=== PATIENT | female | born 1965 | race African-American/Black ===

== ENCOUNTER 2020-11-11 07:58 | Emergency (ER) | payer OTHER, SELFPAY ==
[2020-11-11] VITALS (11 sets, daily range): BP systolic 102–142; BP diastolic 77–91; PULSE 65–81; RESP 11–20; TEMP 37.1; O2SAT 99–100
--- NOTE | ~2020-11-11 | CT_ITS ---
EXAMINATION: CT brain wo con DATE: 11/11/2020 08:31 INDICATION: Seizure. Altered mental status. TECHNIQUE: Computed tomography (CT) of the head was performed without intravenous contrast. The mA wa s adjusted according to patient size. Iterative reconstruction technique was employed. The dose-lengt h product was 605.33 mGy-cm. COMPARISON: None FINDINGS: There is chronic encephalomalacia in anterior right temporal lobe. There is no intracranial hemorrhage, acute infarction, or abnormal intracranial mass lesion. The ventricles are normal in siz e. There is mild mucosal thickening in the ethmoid sinuses. There are changes of right-sided cranioto my. The mastoid air cells are normal. The orbits are normal. IMPRESSION: 1. Chronic encephalomalacia in anterior right temporal lobe. Reviewed, dictated and finalized at location A. S EFFECTIVENESS MANAGER
--- NOTE | 2020-11-11 08:03 | ECG_ITS ---
Measurements Intervals [place] Rate: 74 P: 6 CT: 143 QRS: 40 QRSD: 86 T: 46 QT: 382 QTc: 425 Interpretive Statements SINUS RHYTHM ST ELEVATION IN DIFFUSE LEADS- PROBABLY EARLY REPOLARIZATION BASELINE ARTIFACT- II, III ,AVF BORDERLINE ECG Electronically Signed On 11-11-2020 11:04:51 [employer] SAL[employer] EXECUTIVE by Marshall Rico D.O.
--- NOTE | 2020-11-11 08:09 | ED.SEIZURE ---
HPI - Seizure General Chief Complaint: Seizure Stated Complaint: [id number] Time Seen by Provider: 11/11/20 08:00 Source: patient and EMS Mode of arrival: EMS Limitations: no limitations History of Present Illness HPI Narrative: A 55-year-old female presents to the emergency department with complaints of a possible seizure per EMS. EMS reports that they were called after the patient had 10 minutes of a whole body seizure . This was reported by the people that were with her. They stated that they were her family. EMS note that her family did not even know the patient's last name. Patient still confused and unable to provide meaningful history. Related Data Home Medications Medication Instructions Recorded Confirmed cyclobenzaprine mg 11/11/20 levetiracetam 11/11/20 polyethylene glycol 3350 11/11/20 Allergies Allergy/AdvReac Type Severity Reaction Status Date / Time No Known Drug Allergies Allergy Unknown Unknown Verified 11/11/20 09:48 Review of Systems Review of Systems: ROS unobtainable: Yes unobtainable due to medical condition Exam Narrative: Exam Narrative: GENERAL: Well-appearing, well-nourished, and in no acute distress. HEAD: Normocephalic, atraumatic. EYES: PERRLA and EOMI. ENT: Nares clear, no rhinorrhea or epistaxis. Mucous membranes moist. Oropharynx without tonsillar hypertrophy exudate or other lesions. Bilateral TMs p[place] bloom nonbulging NECK: Supple. No adenopathy or masses. No carotid bruits or JVD CHEST: Clear to auscultation. No respiratory distress. No wheezes rales or rhonchi HEART: Regular rate and rhythm. No murmur heard. Normal peripheral pulses. ABDOMEN: Soft, nontender, nondistended, normal active bowel sounds. EXTREMITIES: Normal range of motion. No edema. SKIN: Warm, dry, no rash. NEURO: No focal deficits. Alert and oriented x1-2. PSYCH: Normal mood and affect. Course Reevaluation(s) Reevaluation #1: Patient resting comfortably at this time. She is more awake and alert. Patient states that she is compliant with her medications however she cannot recall the exact name. Patient is feeling much better. She has no complaints at this time. Time: 09:56 Vital Signs Vital signs: Vital Signs Temperature 37.1 C 11/11/20 07:56 Pulse Rate 71 01/26/21 07:56 Respiratory Rate 20 11/11/20 07:56 Blood Pressure 133/89 11/11/20 07:56 Pulse Oximetry 100 11/11/20 07:56 Temperature 37.1 C 11/11/20 07:56 Pulse Rate 65 11/11/20 09:02 Respiratory Rate 11 L 11/11/20 09:02 Blood Pressure 142/91 H 11/11/20 09:01 Pulse Oximetry 100 11/11/20 09:02 MDM - Seizure MDM Narrative Medical decision making narrative: In brief this is a 55-year-old female was brought into the emergency department for seizure-like activity. Patient was worked up and evaluated. On arrival she was somewhat postictal and somewhat confused. After the patient was observed in the emergency department she did return to baseline, was mentating well and answering questions appropriately. Patient was uncertain of what her antiepileptic was and therefore we were unable to check levels. The remainder of the patient's laboratory data are consistent with a seizure. Her elevated lactic acid I feel is likely due to convulsions and not any type of septic process. Patient was given IV fluids to address this. She will be discharged home. Patient's drug screen was positive for cannabis that this may have been playing a role as well. Medical Records Attestation: I reviewed the patient's medical records. Lab Data Attestation: I reviewed the patient's lab results. Result diagrams: 11/11/20 08:23 11/11/20 08:23 Labs: Lab Results 11/11/20 11/11/20 11/11/20 Range/Units 08:23 08:23 08:23 WBC 5.3 (4.5-10.0) K/mm3 RBC 5.01 (4.2-5.4) M/mm3 Hgb 14.7 (12.0-15.0) g/dL Hct 44.3 (37.0-47.0) % MCV 88.4 (80-100) fl MCH 29.3 (26-3
[2020-11-11 08:38] LABS: Basophils Absolute Auto 0.1 K/mm3 (0.0-0.1); Basophils Percent Auto 0.9 % (0.2-1.2); Eosinophils Absolute Auto 0.1 K/mm3 (0-0.3); Eosinophils Percent Auto 1.5 % (0-4.4); Hematocrit 44.3 % (37.0-47.0); Hemoglobin 14.7 g/dL (12.0-15.0); Immature Granulocyte Absolute 0.01 K/mm3 (0.00-0.031); Immature Granulocyte Percent A 0.2 % (0-0.5); Lymphocytes Absolute Auto 3.09 K/mm3 (0.9-3.2); Lymphocytes Percent Auto 57.9 % (18.3-44.2); Mean Corpuscular HGB Conc 33.2 g/dl (32-36); Mean Corpuscular Hemoglobin 29.3 pg (26-34); Mean Corpuscular Volume 88.4 fl (80-100); Mean Platelet Volume 9.9 fl (7.4-10.4); Monocytes Absolute Auto 0.4 K/mm3 (0.1-0.6); Monocytes Percent Auto 7.7 % (2.6-8.5); Neutrophils Absolute Auto 1.7 K/mm3 (1.3-6.7); Neutrophils Percent Auto 31.8 % (45.5-73.1); Platelet Count Result 290 k/mm3 (150-375); Red Blood Count 5.01 M/mm3 (4.2-5.4); Red Cell Distribution Width 13.8 % (11.5-14.5); White Blood Count 5.3 K/mm3 (4.5-10.0)
[2020-11-11 08:51] LABS: Lactic Acid Reflex 4.1 mmol/L (0.7-2.1)
[2020-11-11 08:55] LABS: Albumin Level 4.3 g/dL (3.5-5.1); Carbon Dioxide 28 mmol/L (22-30); Estimated CRCL calculation 68 ml/min; Estimated Glomerular Filt Rate > 60
[2020-11-11 09:01] LABS: Troponin I < 0.012 ng/mL (0.000-0.034)
[2020-11-11 09:10] LABS: Alkaline Phosphatase 62 U/L (38-126); Anion Gap 8 mmol/L (8-16); Aspartate Amino Transferase 33 U/L (14-36); Bilirubin,Total 0.7 mg/dL (0.2-1.3); Blood Urea Nitrogen 11 mg/dL (7-17); Calcium 9.3 mg/dL (8.4-10.2); Chloride 101 mmol/L (98-107); Glucose 92 mg/dL (65-105); Potassium 3.8 mmol/L (3.4-5.0); Sodium 137 mmol/L (137-145)
[2020-11-11 09:19] LABS: Alanine Aminotransferase 28 U/L (4-35)
[2020-11-11 09:26] LABS: Add Urine Microscopic? YES; Appearance Urine Clear (Clear); Bacteria Urine 4+ /hpf; Bilirubin Urine Negative (Negative); Blood Urine 2+ (Negative); Color Urine Yellow (Yellow); Glucose Urine UA Negative (Negative); Ketones Urine Negative (Negative); Leukocyte Esterase Ur Negative LEU/UL (Negative); Mucus Urine Few /lpf; Nitrate Urine Positive (Negative); Protein Urine 2+ mg/dL (Negative); RBC Urine 0-2 /hpf (0-2); Specific Grav Ur 1.026 (1.001-1.035); Squamous Epithelial Cell Urine Many /hpf (Few); Urobilinogen Urine Negative mg/dL (<2.0); WBC Urine 0-3 /hpf
[2020-11-11 09:30] LABS: Creatine Kinase 60 U/L (30-135)
[2020-11-11 09:32] LABS: Amphetamine Screen Urine Negative (Negative); Barbiturate Screen Urine Negative (Negative); Benzodiazepines Screen Urine Negative (Negative); Cannabinoid Screen Urine Positive (Negative); Cocaine Screen Urine Negative (Negative); Methadone Screen Urine Negative (Negative); Opiate Screen Urine Negative (Negative); Phencyclidine Screen Urine Negative (Negative)
[2020-11-11] MEDS: LACTATED RINGERS 1,000 ML 999 ML IV CONT (09:47)
[2020-11-11 11:34] LABS: Reflex Lactic Acid Yes or No Add Lactic
== END 2020-11-11 10:27 | disposition home or self-care (01) ==
PROVIDERS: Emergency Provider Emergency Medicine
DX: R56.9 Unspecified convulsions (principal); R94.31 Abnormal electrocardiogram [ECG] [EKG]; G93.89 Other specified disorders of brain
CPT/HCPCS: 36415; 51701; 70450; 80053; 80307; 81001; 82550; 83605; 84484; 85025; 93005; 96360; 99284; J7120